=== PATIENT | female | born 1950 | race Caucasian/White ===

== ENCOUNTER 2016-06-12 15:58 | Emergency (ER) | payer OTHER, MEDICARE ==
[2016-06-12] MEDS ORDERED: DIPH/PERTUSS(ACELL)/TETANUS VAC/PF 0.5 ML SYR (>=10YO) IM ONE (17:36)
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
[2016-06-12] MEDS ORDERED: ACETAMINOPHEN 325 MG TABLET PO ONE (18:50)
[2016-06-12 19:11] VITALS: BP 132/86
== END 2016-06-12 19:13 | disposition home or self-care (01) ==
LOC: ER 15:58
DX: S80.212A Abrasion, left knee, initial encounter (principal); S61.213A Laceration without foreign body of left middle finger without damage to nail, initial encounter; S61.215A Laceration without foreign body of left ring finger without damage to nail, initial encounter; S61.217A Laceration without foreign body of left little finger without damage to nail, initial encounter; V29.9XXA Motorcycle rider (driver) (passenger) injured in unspecified traffic accident, initial encounter; E78.00 Pure hypercholesterolemia, unspecified; Z23 Encounter for immunization; I10 Essential (primary) hypertension; Z88.1 Allergy status to other antibiotic agents; Z87.891 Personal history of nicotine dependence
CPT/HCPCS: 90471; 90715; 99283